=== PATIENT | female | born 1995 | race Caucasian/White ===

== ENCOUNTER 2021-04-04 12:16 | Emergency (ER) | payer BC, SELFPAY ==
[2021-04-04 12:24] VITALS: BP 138/87; PULSE 87; RESP 16; TEMP 36.3; O2SAT 100
--- NOTE | 2021-04-04 13:26 | ED.GENADULT ---
HPI - General Adult General Chief complaint: Unspecified Stated complaint: CHEST PAINS Time Seen by Provider: 04/04/21 13:20 Source: patient, RN notes reviewed and old records reviewed Mode of arrival: ambulatory Limitations: no limitations History of Present Illness HPI narrative: 25-year-old female presents to [facility] care with complaints of pain to left chest under left breast which radiates to the lateral area for the past days. Patient states that she known of no injury to area, denies any shortness of breath or any pain with deep inspiration or with cough. Patient states that pain to the area is worse with sitting and with any bending over. She reports using Excedrin migraine tabs and ice to area with some decrease. Patient denies any known fevers, chills or sweats, denies any recent travel or prior history of DVT.Patient does report that she does a lot of lifting at work. Onset (ago): day(s) (3) Location: chest (under left breast to lateral area) Severity: severe Severity scale (1-10): 8 Quality: aching and sharp Pain Consistency: constant Relieving factors: other (ice) Exacerbating factors: movement (bending over) Treatments prior to arrival: other (ice and excedrin migraine tabs) Related Data Home Medications Medication Instructions Recorded Confirmed norgestimate-ethinyl estradiol tablet 04/04/21 [Sprintec (28)] Allergies Allergy/AdvReac Type Severity Reaction Status Date / Time No Known Allergies Allergy Unverified 12/01/17 09:32 Review of Systems Review of Systems: Narrative: CONSTITUTIONAL: Denies fever, chills, or sweats. EYES: Denies visual changes, redness, or discharge. ENT: Denies rhinorrhea, congestion, sore throat, or otalgia. CARDIOVASCULAR:positive for left lower chest pain radiating to lateral rib area, denies palpitations,pressure, or edema. RESPIRATORY: Denies cough or dyspnea. GASTROINTESTINAL: Denies abdominal pain, nausea, vomiting, or diarrhea. GENITOURINARY: Denies dysuria or hematuria. SKIN: Denies rash or itching. MUSCULOSKELETAL: Denies back pain, joint pain, or myalgia. NEUROLOGIC: Denies headache, numbness, or weakness. PSYCHIATRIC: Denies anxiety or depression. All systems reviewed & are unremarkable except as noted in HPI and below [facility] Past Medical History Medical History (Updated 04/09/21 @ 13:50 by Yaima Horn NP) Esophageal fissure repair Migraine Family History Family History (Updated 04/09/21 @ 13:52 by Yaima Horn NP) Other No significant family history Social History Social History (Updated 04/09/21 @ 13:51 by Yaima Horn NP) Smoking status: Never smoker Alcohol intake: current Alcohol use details: social Substance use: never Living arrangements: with family Gender identity (if verbalized by the patient): Female Comments At time of signature, agree with nursing past medical, surgical, social and family history. There is no relevant family history pertinent to the presenting complaint Exam Narrative: Exam Narrative: GENERAL: Well-appearing, well-nourished, and in no acute distress. HEAD: Normocephalic, atraumatic. EYES: PERRLA and EOMI. ENT: Nares clear, no rhinorrhea or epistaxis. Mucous membranes moist. NECK: Supple.no lymphadenopathy CHEST: Clear to auscultation. No respiratory distress. no CUMMINGS or at rest, no pain with deep inspiration.SAO2 100% on room air. HEART: Regular rate and rhythm. No murmur heard. Normal peripheral pulses. ABDOMEN: Soft, nontender, nondistended, normal active bowel sounds. EXTREMITIES: Normal range of motion. No edema. SKIN: Warm, dry, no rash. NEURO: No focal deficits. Alert and oriented x3. Course Vital Signs Vital signs: Vital Signs Temperature 36.3 C L 04/04/21 12:24 Pulse Rate 87 04/04/21 12:24 Respiratory Rate 16 04/04/21 12:24 Blood Pressure 138/87 04/04/21 12:24 Pulse Oximetry 100 04/04/21 12:24 Temperature 36.3 C L 04/04/21 12:24 Pulse Rate
== END 2021-04-04 14:09 | disposition home or self-care (01) ==
PROVIDERS: Emergency Provider Registered Nurse
DX: M94.0 Chondrocostal junction syndrome [Tietze] (principal)
CPT/HCPCS: 99213; G0463